=== PATIENT | male | born 1990 | race Caucasian/White ===

== ENCOUNTER 2020-03-21 23:12 | Emergency (ER) | payer BC, OTHER ==
[~2020-03-21] VITALS: Ht 182.9 cm; Wt 122.5 kg
[~2020-03-21 23:12] MED LIST: BISM-116 PO; DOCU-28 PO; IBUP-1984 PO; OMEG500C PO; OMEP40CA13 PO; VENL75CA55 PO
[2020-03-21] MEDS ORDERED: SUMAtriptan succ. 6 MG/0.5ml vial SQ ONE (23:30)
[2020-03-21] MEDS ORDERED: normal saline 1000ml 1,000 ML IV ONE (23:30)
[2020-03-21] MEDS ORDERED: aspirin 325mg tablet PO ONE (23:30)
[2020-03-21] MEDS ORDERED: acetaminophen 325mg tablet PO ONE (23:30)
[2020-03-21] MEDS ORDERED: proCHLORperazine 10 MG/2 ml inj IV ONE (23:30)
[2020-03-22 01:04] VITALS: BP 166/108
== END 2020-03-22 00:58 | disposition home or self-care (01) ==
LOC: ER 23:12
DX: R51 Headache (principal); H53.149 Visual discomfort, unspecified; G89.29 Other chronic pain; Z88.5 Allergy status to narcotic agent; Z79.899 Other long term (current) drug therapy
CPT/HCPCS: 96372; 96374; 99284; J0780; J7030; J3030